=== PATIENT | male | born 1975 | race Caucasian/White ===

== ENCOUNTER 2020-09-01 07:41 | Emergency (ER) | payer MEDICAID, SELFPAY ==
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
[2020-09-01 08:04] VITALS: BP 126/80; PULSE 73; RESP 18; O2SAT 97; BMI 24.3
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
[2020-09-01] MEDS: Ketorolac Tromethamine 30 MG/ML VIAL IM (09:45)
== END 2020-09-01 10:05 | disposition home or self-care (01) ==
PROVIDERS: Emergency Provider Emergency Medicine
DX: M54.5 Low back pain (principal); Z79.899 Other long term (current) drug therapy
CPT/HCPCS: 72100; 96372; 99283; J1885

== ENCOUNTER → 2021-09-11 09:28 | Outpatient (BNVA) | payer SELFPAY | PROVIDERS: Visit Provider Physician Assistant | DX: Z02.79 Encounter for issue of other medical certificate (principal) ==

== ENCOUNTER 2025-02-13 08:56 | Outpatient (AMB) | payer OTHER, SELFPAY ==
[2025-02-13 09:04] VITALS: BP 122/70; PULSE 109; RESP 18; TEMP 35.7; O2SAT 97; BMI 27.5
--- NOTE | 2025-02-13 09:04 | A.OFFPC_ITS ---
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 Allergy (Unknown, Uncoded 04/14/17 00:00) Medication List - Last Reconciled 02/13/25 by Kamla Nguyen MD acetaminophen (Tylenol Extra Strength) 500 mg PO Q6H PRN Tobacco use date assessed: 02/13/25 Dental Screening Dental Screen Date: 02/13/25 Did you have a dental visit in the last 12 months?: No Did you have a dental problem in the last 6 months where you did not have access to dental care?: No Was dental information given to patient?: No HPI HPI Comments History of Present Illness Details The patient is a 49-year-old male with no PMH presenting to [facility] as a new patient after not having a primary care physician for five years. His primary concern is erectile dysfunction, which began when he turned 49. He has been for 21 years and is worried about the impact of this condition on his marriage. The patient also reports intermittent right shoulder pain and headaches, which are managed with [id number] Tylenol and ibuprofen. He denies any history of high blood pressure or high cholesterol. The patient has a 38-year history of smoking, having started at age 11. He has significantly reduced his consumption from three packs per day to three cigarettes per day since starting his new job. He previously worked as a local company intermodal truck driver for 30 years. His past medical history includes chickenpox as a child. He received a tetanus shot about one to two years ago, received his annual flu vaccine, and has completed a two-dose COVID-19 vaccination series. He has never had a colonoscopy. [facility] Surgical History Hx of vasectomy Social History Alcohol intake: never Patient Tobacco Use Status: Never used Tobacco e-Cigarette/Vaping Use: Never Used Current occupational status: employed Current occupation: [employer] Cognitive needs: No Hearing needs: No Vision needs: No Questionnaire PHQ-9 Over the last 2 weeks, how often have you been bothered by any of the following problems? 1. Little interest or pleasure in doing things: not at all 2. Feeling down, depressed, or hopeless: not at all 3. Trouble falling or staying asleep, or sleeping too much: not at all 4. Feeling tired or having little energy: not at all 5. Poor appetite or overeating: not at all 6. Feeling bad about yourself - or that you are a failure or have let yourself or your family down: not at all 7. Trouble concentrating on things, such as reading the newspaper or watching television: not at all 8. Moving or speaking so slowly that other people could have noticed. Or the opposite - being so fidgety or restless that you have been moving around a lot more than usual: not at all 9. Thoughts that you would be better off or of hurting yourself in some way: not at all Total score: 0 Source: Developed by Drs. Sebastian Diaz, Guerline Brink, Donnell Obrien and colleagues, with an educational obdulia from [employer]. Thrive Questionnaire I am a: Patient What is your living situation today?: I have a steady place to live Within the past 12 months, did the food you bought not last and you didn't have the money to get more?: Never true Within the past 12 months, did you worry whether your food would run out before you got money to buy more?: Never true Do you have trouble paying for medicines?: No Do you have trouble getting transportation to medical appointments?: No Do you have trouble paying your heating and electricity bill?: No Do you have trouble taking care of your child, family member or friend?: No Do you have trouble with day-to-day activities such as bathing, preparing meals, shopping, managing finances, etc.?: No Are you currently unemployed and looking for a job?: Yes Are you interested in more education?: I choose not to answer this question Please select the resources that you would like help with: None Currently or been in a relationship where the following occur: I choose not to answer THRIVE Score: 0 AUDIT C Alcohol Use Questionnaire (AUDIT-C) 1. How often do you have a drink containing alcohol?: 4 or more times a week 2. How many drinks containing alcohol do you have on a typical day when you are drinking?: 1 or 2 3. How often do you have six or more drinks on one occasion?: Never Total Score: 4 GADIEL-7 AMB Questionnaire GADIEL-7 Feeling nervous, anxious, or on edge: 0 = Not at all Not being able to stop or control worryin = Not at all Worrying too much about different things: 0 = Not at all Trouble relaxin = Not at all Being so restless that it is hard to sit still: 0 = Not at all Becoming easily annoyed or irritable: 0 = Not at all Feeling afraid as if something awful might happen: 0 = Not at all Total GADIEL-7 score (0-4 normal; 5-9 mild; 10-14 moderate; 15-21 severe): 0 Source: Developed by Drs. Sebastian Diaz, Guerline Brink, Donnell Obrien and colleagues, with an educational obdulia from [employer]. Review of Systems Const Details: As per HPI. Physical exam (Primary Care) Vital Signs: Last Vital Signs Temp 96.2 F L 02/13/25 09:04 Pulse 109 H 02/13/25 09:04 Resp 18 02/13/25 09:04 BP 122/70 02/13/25 09:04 Pulse Ox 97 02/13/25 09:04 Oxygen Delivery Method Room Air 02/13/25 09:04 BMI result Body Mass Index 27.5 Tobacco/Smoking Status: Tobacco use Status Tobacco use date assessed 02/13/25 02/13/25 09:14 PHQ-9: PHQ-9 Score PHQ-9: Total score 0 02/13/25 09:18 Currently or been in a relationship where the following occur: I choose not to answer Const Other: Pertinent findings are in BOLD GENERAL APPEARANCE NAD, activity normal for age, well developed/ well nourished, no cyanosis, pallor, or diaphoresis. EYES lids/conjunctiva normal. EARS/NOSE/THROAT Mucous membranes moist, nares normal, lips/teeth normal uvula midline without oral pharyngeal erythema, exudate or swelling TMs normal bilaterally. No lymphangitis/lymphedema. HEAD/NECK normocephalic atraumatic, no facial trauma, neck is supple. RESPIRATORY respiratory effort normal, speaks in full sentences, no tripod position, no accessory muscle use. Lungs clear to auscultation without rhonchi, wheezes, rales CARDIAC Regular rate and rhythm, no edema. ABDOMINAL Soft, ND/NT. No evidence of fluid wave. No pulsatile masses on exam, rebound tenderness, Bustamante sign or pain over Mcburney's point. MUSCLES/EXTREMITIES No abnormal range of motion, no swelling. SKIN Warm, pink and dry. No rashes, dermatoses, petechiae or lesions. NEUROLOGICAL Speech is clear and appropriate. Normal level of consciousness. Gait and coordination are normal. 5/5 strength in all extremities. PSYCH Normal mood and affect. Judgement/competence is appropriate. Coding Level of Care Code New Pt Level 4 (05200) New Pt Prev Care 40-64y(10270) Diagnoses Healthcare maintenance Z00.00 Chronic right shoulder pain M25.511; G89.29 Chronicity: chronic Laterality: right Erectile dysfunction, unspecified erectile dysfunction type N52.9 Erectile dysfunction type: unspecified Tobacco use disorder F17.200 Time Spent (min) 40 Assessment & Plan Assessment & Plan (1) Healthcare maintenance: Code(s): Z00.00 - Encounter for general adult medical examination without abnormal findings Category: Medical Plan: CBC, CMP, Lipid panel, A1C, TSH w T4, vit D. Ordered. Shingles 2 doses when >50 yo. Patient reports he completed it in the past. No records. COVID: two doses. Completed in the past. Pneumococcal: >50 yo. Declined. Flu vaccine: Got it 2024. Tdap: every 10 years. Patient reports it was done few years ago. No records. next due in 2032. Colonoscopy: 45-75. Ordered. AAA: 65 -75. Due at 65. CT lun - 80. Referred to [facility]. PSA: 50 -70 every two years. Ordered. HIV: Ordered. HCV: Ordered. (2) Shoulder pain: Code(s): M25.519 - Pain in unspecified shoulder Category: Medical Qualifiers: Chronicity: chronic Laterality: right Qualified Code(s): M25.511 - Pain in right shoulder; G89.29 - Other chronic pain Plan: Tylenol and Ibuprofen OTC. Well controlled. No further W-U needed at this time. (3) Erectile dysfunction: Code(s): N52.9 - Male erectile dysfunction, unspecified Category: Medical Qualifiers: Erectile dysfunction type: unspecified Qualified Code(s): N52.9 - Male erectile dysfunction, unspecified Plan: - A referral to Urology ordered for further evaluation and management. - Prescribed sildenafil 25 mg, 10 tablets, to be taken as needed. - The patient was advised to send a message if this dose is ineffective, as it can be increased. (4) Tobacco use disorder: Code(s): F17.200 - Nicotine dependence, unspecified, uncomplicated Category: Medical Plan: - Praised the patient for his significant reduction in smoking from three packs to three cigarettes daily. - Counseled on the importance of complete smoking cessation and offered assistance when he is ready. - Placed a referral to Pulmonology for lung cancer screening with a CT scan due to a 38-year smoking history. Plan I discussed the patient's primary concern of erectile dysfunction, and we agreed on a referral to a urology specialist for further evaluation. In the interim, I prescribed sildenafil 25 mg to assist with his symptoms and instructed him to contact us if it is not effective. We also reviewed his extensive smoking history, and I commended him for his significant reduction in daily use. I explained the rationale for lung cancer screening and referred him to a school clerk for a CT scan. We discussed age-appropriate health maintenance, including a referral for his first screening colonoscopy, which he agreed to. I informed him that I ordered a panel of screening labs, including a PSA test. We will follow up in six months to review the results of labs and specialist consultations. Orders: Orders Comprehensive Met. Panel Today Z00.00 - Encounter for general adult medical examination without abnormal findings HIV Ab/Ag Today Z00.00 - Encounter for general adult medical examination without abnormal findings Lipid Panel Today Z00.00 - Encounter for general adult medical examination without abnormal findings Complete Blood Count no Diff Today Z00.00 - Encounter for general adult medical examination without abnormal findings Hemoglobin A1c Today Z00.00 - Encounter for general adult medical examination without abnormal findings Hepatitis C Antibody Reflex Today Z00.00 - Encounter for general adult medical examination without abnormal findings Vitamin D 25-OH Total Today Z00.00 - Encounter for general adult medical examination without abnormal findings UA and rflx microscopic Today Z00.00 - Encounter for general adult medical examination without abnormal findings TSH reflex Free T4 Today Z00.00 - Encounter for general adult medical e xamination without abnormal findings Prostate Specific Antigen Today Z00.00 - Encounter for general adult medical examination without abnormal findings Referrals Urology Referral N52.9 - Male erectile dysfunction, unspecified, Z00.00 - Encounter for general adult medical examination without abnormal findings Pulmonology Referral F17.200 - Nicotine dependence, unspecified, uncomplicated, Z00.00 - Encounter for general adult medical examination without abnormal findings Open Access Screening Colonoscopy Referral Z12.11 - Encounter for screening for malignant neoplasm of colon, Z12.12 - Encounter for screening for malignant neoplasm of rectum Medications: New sildenafil (Viagra) administer 30 minutes to 4 hours before activity 25 mg PO DAILY PRN 10 tabs 3RF sexual activity
== END 2025-02-13 09:49 | disposition home or self-care (01) ==
LOC: HO.HMCH 08:57
PROVIDERS: Visit Provider Internal Medicine
DX: Z00.00 Encounter for general adult medical examination without abnormal findings (principal); M25.511 Pain in right shoulder; G89.29 Other chronic pain; N52.9 Male erectile dysfunction, unspecified; F17.200 Nicotine dependence, unspecified, uncomplicated